=== PATIENT | female | born 1990 | race Hispanic/Latino ===

== ENCOUNTER 2023-07-28 08:35 | Emergency (ER) | payer OTHER ==
[~2023-07-28] VITALS: Ht 157.5 cm; Wt 51.3 kg
[2023-07-28 09:17] LABS: HCG,QUALITATIVE URINE POSITIVE (NEGATIVE)
[2023-07-28 09:18] LABS: APPEARANCE,URINE CLOUDY (CLEAR); BILIRUBIN,URINE NEGATIVE (NEGATIVE); COLOR,URINE YELLOW (YELLOW); GLUCOSE, URINE (UA) NEGATIVE (NEGATIVE); KETONES,URINE 20 mg/dL (NEGATIVE); OCCULT BLOOD,URINE LARGE (NEGATIVE); PROTEIN,URINE 20 mg/dL (NEGATIVE); UROBILINOGEN,URINE 0.2 mg/dL (0.2-1.0)
[2023-07-28 09:19] LABS: LEUKOCYTE ESTERASE ,URINE NEGATIVE Leu/uL (NEGATIVE); NITRATE,URINE NEGATIVE (NEGATIVE)
[2023-07-28] MEDS: ACETAMINOPHEN 500 MG TABLET PO ONE (09:20)
[2023-07-28 09:22] LABS: ADD UA MICROSCOPIC YES
[2023-07-28 09:23] LABS: BASOPHILS # (AUTO) 0.04 K/uL (0.00-0.20); BASOPHILS % (AUTO) 0.5 % (0.0-5.0); EOSINOPHILS # (AUTO) 0.04 K/uL (0.00-0.70); EOSINOPHILS % (AUTO) 0.5 % (0.0-8.0); HEMATOCRIT 44.2 % (36-48); IMMATURE GRANULOCYTE ABSOLUTE 0.03 K/uL (0-1); LYMPHOCYTES # (AUTO) 1.4 K/uL (1.0-4.8); LYMPHOCYTES % (AUTO) 15.9 % (21.0-51.0); MEAN CORPUSCULAR HEMOGLOBIN 30.8 pg (27.0-33.0); MEAN CORPUSCULAR HGB CONC 34.2 g/dL (32.0-36.0); MEAN CORPUSCULAR VOLUME 90.2 fL (79-99); MONOCYTES # (AUTO) 0.8 K/uL (0.1-1.0); MONOCYTES % (AUTO) 8.8 % (3.0-13.0); NEUTROPHILS # (AUTO) 6.5 K/uL (1.8-7.7); PLATELET COUNT (AUTO) 197 K/uL (130-400); RED CELL DISTRIBUTION WIDTH 12.4 % (11.0-15.5); WHITE BLOOD COUNT (AUTO) 8.8 K/uL (4.8-10.8)
[2023-07-28 09:27] LABS: CREATININE 0.6 mg/dL (0.5-1.0); POTASSIUM 3.3 mmol/L (3.5-5.1)
[2023-07-28] MEDS: ACETAMINOPHEN 500 MG TABLET ONE (09:27)
[2023-07-28 09:32] LABS: BACTERIA,URINE RARE /HPF (None Seen); MUCUS,URINE RARE LPF (None Seen); RBC,URINE TNTC /HPF (0-1); SQUAMOUS EPITHELIAL CELL,UR RARE /HPF (0-2)
[2023-07-28 09:32] LABS: BILIRUBIN,TOTAL 0.5 mg/dL (0.2-1.0)
[2023-07-28] MEDS: POTASSIUM BICARB/CIT AC 25 MEQ TABLET.EFF PO ONE (10:50)
[2023-07-28] MEDS ORDERED: IBUP-2077 PO (11:02)
[2023-07-28] MEDS: HYDROCODONE/ACETAMINOPHEN 5/325 MG TAB PO ONE (11:20)
[2023-07-28 11:48] VITALS: BP 110/75; PULSE 74; RESP 17; O2SAT 97
== END 2023-07-28 11:51 | disposition home or self-care (01) ==
LOC: EDH 08:35
DX: O03.9 Complete or unspecified spontaneous abortion without complication (principal); Z3A.01 Less than 8 weeks gestation of pregnancy; Z98.890 Other specified postprocedural states
CPT/HCPCS: 36415; 76801; 80053; 81001; 81025; 84702; 85025; 86900; 86901